=== PATIENT | male | born 1995 | race Caucasian/White ===

== ENCOUNTER 2019-02-26 18:24 | Emergency (ER) | payer SELFPAY ==
[~2019-02-26] VITALS: Ht 170.2 cm; Wt 68.0 kg
[2019-02-26 19:30] VITALS: BP 106/69
== END 2019-02-26 19:48 | disposition home or self-care (01) ==
LOC: ER 18:38
DX: R10.9 Unspecified abdominal pain (principal)
CPT/HCPCS: 99283

== ENCOUNTER 2022-09-24 01:11 | Emergency (ER) | payer MEDICAID, OTHER ==
[~2022-09-24] VITALS: Ht 175.3 cm; Wt 86.0 kg
[2022-09-24 01:20] VITALS: BP 143/77
== END 2022-09-24 02:50 | disposition left against medical advice (07) ==
LOC: ER 01:11
DX: Z53.21 Procedure and treatment not carried out due to patient leaving prior to being seen by health care provider (principal)
CPT/HCPCS: 99281

== ENCOUNTER 2022-10-14 10:17 | Emergency (ER) | payer MEDICAID ==
[~2022-10-14] VITALS: Ht 177.8 cm; Wt 82.0 kg
[2022-10-14 10:19] VITALS: O2SAT 100
[2022-10-14] MEDS ORDERED: SODIUM CHLORIDE 0.9% 1,000 ML IV ONE (10:45)
[2022-10-14 11:02] LABS: BASOPHILS % 0.5 % (0.0-2.0); EOSINOPHILS % 0.5 % (0.0-5.0); HEMATOCRIT. 40.1 % (42.0-52.0); HEMOGLOBIN. 13.8 g/dL (14.0-18.0); LYMPHOCYTES % 33.9 % (20.0-50.0); MEAN CORPUSCULAR HEMOGLOBIN 32.6 pg (28.0-32.0); MEAN CORPUSCULAR VOLUME 94.9 fL (80.0-94.0); MEAN PLATELET VOLUME 8.3 fl (7.4-10.4); MONOCYTES % 4.8 % (2.0-8.0); NEUTROPHILS % 60.3 % (40.0-76.0); PLATELET 204 x1000/uL (130-400); RED BLOOD CELL COUNT 4.23 mill/uL (4.7-6.1); RED CELL DISTRIBUTION WIDTH 14.8 % (11.6-14.6)
[2022-10-14 11:09] LABS: CHLORIDE 109 mEq/L (98-107)
[2022-10-14 11:14] LABS: ETHANOL BLOOD < 10 mg/dL (-10)
[2022-10-14 14:30] VITALS: BP 93/55; PULSE 54; RESP 16; TEMP 98.6
== END 2022-10-14 15:17 | disposition home or self-care (01) ==
LOC: ER 10:49
DX: T65.91XA Toxic effect of unspecified substance, accidental (unintentional), initial encounter (principal); Y92.9 Unspecified place or not applicable
CPT/HCPCS: 80048; 80320; 85025; 36415; 96360; 99285; J7030; G0480